=== PATIENT | female | born 1965 | race Caucasian/White ===

== ENCOUNTER → 2017-03-28 | Outpatient (CLI) | payer OTHER ==
[~2017-03-28] MED LIST: ACET-1600 PO; ACET1TAB91 PO; ASPI-496 PO; FAMO-79 PO; OXYC-302 PO; VOLTAREN PO; [UNRECOGNIZED DRUG - CODE] PO
[2017-03-28 14:35] LABS: BASOPHILS # (AUTO) 0.05 x10^3/uL (0-0.1); BASOPHILS % (AUTO) 1 % (0-1); EOSINOPHILS # (AUTO) 0.37 x10^3/uL (0-0.4); EOSINOPHILS % (AUTO) 4 % (1-7); LYMPHOCYTES # (AUTO) 2.22 x10^3/uL (1-3.4); LYMPHOCYTES % (AUTO) 26 % (22-44); MD NO; MEAN CORPUSCULAR HEMOGLOBIN 30.2 pg (27.0-34.8); MEAN CORPUSCULAR HGB CONC 33.8 g/dL (32.4-35.8); MEAN CORPUSCULAR VOLUME 89.3 fL (80-100); MEAN PLATELET VOLUME 8.1 fL (7.4-10.4); MONOCYTES # (AUTO) 0.45 x10^3/uL (0.2-0.8); MONOCYTES % (AUTO) 5 % (2-9); NEUTROPHILS # (AUTO) 5.45 x10^3/uL (1.8-6.8); NEUTROPHILS % (AUTO) 64 % (42-75); PLATELET COUNT 235 x10^3/uL (130-400); RED BLOOD COUNT 4.51 x10^6/uL (3.82-5.3); RED CELL DISTRIBUTION WIDTH 13.3 % (9.6-15.2)
[2017-03-28 14:38] LABS: MICROSCOPIC NOT IND
[2017-03-28 14:45] LABS: CULTURE INDICATED? NO
[2017-03-28 14:47] LABS: ANION GAP 5 mmol/L (5-15); CALCIUM 8.6 mg/dL (8.5-10.1); CHLORIDE 107 mmol/L (98-107); CREATININE 0.59 mg/dL (0.55-1.02)
== END | disposition home or self-care (01) ==
LOC: STAR 13:38
PROVIDERS: ATTEND Orthopaedic Surgery
DX: Z01.818 Encounter for other preprocedural examination (principal); M17.12 Unilateral primary osteoarthritis, left knee
CPT/HCPCS: 36415; 80048; 81003; 85025; 87081

== ENCOUNTER 2017-04-04 09:28 | Inpatient (IN) | payer OTHER ==
[~2017-04-04] VITALS: Ht 182.9 cm; Wt 111.2 kg
[2017-04-04] MEDS ORDERED: LACTATED RINGERS 1,000 ML IV SCH (10:03)
[2017-04-04 10:05] VITALS: BP_SYST 119
[2017-04-04] MEDS ORDERED: ONDANSETRON 2MG/ML, 2ML ONE (10:16)
[2017-04-04] MEDS ORDERED: DEXAMETHASONE 4 MG/ML, 1ML ONE (10:16)
[2017-04-04] MEDS ORDERED: LIDOCAINE-MPF 1%, 2ML ONE (10:16)
[2017-04-04] MEDS ORDERED: CEFAZOLIN 1,000 MG ONE (10:16)
[2017-04-04] MEDS ORDERED: LIDOCAINE 1%, 2ML SQ PRN (10:30)
[2017-04-04] MEDS ORDERED: FAMOTIDINE 20 MG TABLET PO STA (11:04)
[2017-04-04] MEDS ORDERED: ACETAMINOPHEN 500 MG TABLET PO STA (11:04)
[2017-04-04] MEDS ORDERED: SCOPOLAMINE PATCH, 1.5MG PATCH.TD72 TD ONE (11:30)
[2017-04-04] MEDS ORDERED: GABAPENTIN 300 MG CAPSULE PO ONE (11:30)
[2017-04-04] MEDS ORDERED: FENTANYL PF 100 MCG/2ML ONE (12:16)
[2017-04-04] MEDS ORDERED: MIDAZOLAM 1 MG/ML, 5ML ONE (12:16)
[2017-04-04] MEDS ORDERED: ROPIvacaine/PF 0.2%, 20 ML ONE (12:30)
[2017-04-04] MEDS ORDERED: VANCOMYCIN 1,000 MG ONE (12:30)
[2017-04-04] MEDS ORDERED: KETOROLAC 60 MG/2 ML ONE (12:30)
[2017-04-04] MEDS ORDERED: TRANEXAMIC ACID 100 MG/ML, 10ML ONE (12:30)
[2017-04-04] MEDS ORDERED: SODIUM CHLORIDE 0.9% 100 ML ONE (12:31)
[2017-04-04] MEDS ORDERED: EPINEPHRINE 1 MG/ML, 1ML ONE (12:31)
[2017-04-04] MEDS ORDERED: PROPOFOL 50 ML ONE ×2 (13:27→14:02)
[2017-04-04] MEDS ORDERED: ROPIvacaine/PF 0.2%, 100ML 550 ML (check volume) INJ ONE (14:30)
[2017-04-04] MEDS ORDERED: ALBUTEROL SULFATE 2.5 MG/3 ML NPPB PRN (14:30)
[2017-04-04] MEDS ORDERED: PROMETHAZINE 25 MG/ML, 1ML IV PRN (14:30)
[2017-04-04] MEDS ORDERED: OXYcodone 5 MG/5 ML ORAL.SOL UDC PO PRN (14:30)
[2017-04-04] MEDS ORDERED: DIAZEPAM 5 MG/ML, 2ML IVPush PRN (14:30)
[2017-04-04] MEDS ORDERED: FENTANYL PF 100 MCG/2ML IV PRN (14:30)
[2017-04-04] MEDS: D5%-0.45% NACL 1,000 ML IV SCH ×2 (14:59→22:59)
[2017-04-04] MEDS ORDERED: SENNA/DOCUSATE TABLET PO PRN (15:00)
[2017-04-04] MEDS ORDERED: DIAZEPAM 5 MG TABLET PO PRN (15:00)
[2017-04-04] MEDS ORDERED: HYDROcodone/APAP 5/325 TABLET PO PRN (15:00)
[2017-04-04] MEDS ORDERED: DIPHENHYDRAMINE 25 MG CAPSULE PO PRN (15:00)
[2017-04-04] MEDS: KETOROLAC 30 MG/1 ML IV SCH ×2 (15:00→21:28)
[2017-04-04] MEDS: HYDROcodone/APAP 5/325 TABLET PO SCH ×2 (15:00→20:04)
[2017-04-04] MEDS ORDERED: ZOLPIDEM 5MG TABLET PO PRN (15:00)
[2017-04-04] MEDS ORDERED: PROMETHAZINE 12.5 MG SUPP PR PRN (15:00)
[2017-04-04] MEDS ORDERED: BISACODYL 10 MG SUPP PR PRN (15:00)
[2017-04-04] MEDS ORDERED: PROMETHAZINE 25 MG/ML, 1ML IM PRN (15:00)
[2017-04-04] MEDS ORDERED: ONDANSETRON 2MG/ML, 2ML IV PRN (15:00)
[2017-04-04] MEDS ORDERED: MAGNESIUM HYDROXIDE 8%, 30ML UDC PO PRN (15:00)
[2017-04-04] MEDS ORDERED: ONDANSETRON 4 MG TABLET PO PRN (15:00)
[2017-04-04] MEDS ORDERED: ALUMINUM/MAG/SIMETHICONE 30 ML UDC PO PRN (15:00)
[2017-04-04] MEDS: ACETAMINOPHEN 650 MG/20.3 ML UDC PO SCH ×2 (15:00→21:28)
[2017-04-04] MEDS ORDERED: HYDROmorphone 1 MG/ML, 1ML IV PRN (15:00)
[2017-04-04] MEDS ORDERED: TRANEXAMIC ACID 1,000 MG in SODIUM CHLORIDE 0.9% 100 ML IVPB ONE (15:30)
[2017-04-04] MEDS: TAMSULOSIN 0.4 MG CAP.ER.24H PO SCH (15:30)
[2017-04-04] MEDS: CEFAZOLIN PMX 2GM/50ML 50 ML IVPB SCH (21:28)
[2017-04-04] MEDS: DOCUSATE 100 MG CAPSULE PO SCH (21:28)
[2017-04-04 21:49] VITALS: BP 113/71
[2017-04-05] MEDS: HYDROcodone/APAP 5/325 TABLET PO SCH ×2 (00:14→05:58)
[2017-04-05 00:40] VITALS: BP 99/62
[2017-04-05 03:00] VITALS: BP 109/73
[2017-04-05] MEDS: ACETAMINOPHEN 650 MG/20.3 ML UDC PO SCH ×2 (03:00→08:49)
[2017-04-05] MEDS: KETOROLAC 30 MG/1 ML IV SCH ×2 (04:22→08:50)
[2017-04-05] MEDS: CEFAZOLIN PMX 2GM/50ML 50 ML IVPB SCH (05:30)
[2017-04-05] MEDS ORDERED: DEXAMETHASONE 4 MG/ML, 1ML IVPush SCH (06:00)
[2017-04-05] MEDS ORDERED: ENOXAPARIN 40 MG/0.4 ML SQ SCH (06:00)
[2017-04-05 07:32] VITALS: BP 112/78
[2017-04-05] MEDS: TAMSULOSIN 0.4 MG CAP.ER.24H PO SCH (08:49)
[2017-04-05] MEDS: DOCUSATE 100 MG CAPSULE PO SCH (08:49)
[2017-04-05] MEDS ORDERED: MULTIVITAMINS/MINERALS TABLET PO SCH (09:00)
[2017-04-05] MEDS: D5%-0.45% NACL 1,000 ML IV SCH (10:18)
[2017-04-05] MEDS ORDERED: ENOX40SY4 SQ (12:24)
[2017-04-05] MEDS ORDERED: HYDR-3240 PO (13:20)
== END 2017-04-05 13:35 | disposition home or self-care (01) | DRG 470 ==
LOC: ORIP 09:28 → 4NOR 16:07 → DCLOUNGE 04-05 13:27
PROVIDERS: ADMIT Orthopaedic Surgery; ATTEND Orthopaedic Surgery
PROC: 0SRD0J9 Replacement of Left Knee Joint with Synthetic Substitute, Cemented, Open Approach (ICD-10-PCS; principal; 2017-04-04 12:45)
DX: M17.12 Unilateral primary osteoarthritis, left knee (principal); M21.00 Valgus deformity, not elsewhere classified, unspecified site; Z88.5 Allergy status to narcotic agent
CPT/HCPCS: 36415; 85014; 85018; C1713; J0171; J0690; J1100; J1650; J1885; J2250; J2405; J2704; J2795; J3010; J3370; J3490; C1776; J7120

== ENCOUNTER → 2017-12-23 | Outpatient (CLI) | payer BC ==
[~2017-12-23] MED LIST changes: +ENOX40SY4 SQ; +HYDR-3240 PO
== END | disposition home or self-care (01) ==
LOC: PETCFH 13:22
PROVIDERS: ATTEND Specialist
DX: C77.0 Secondary and unspecified malignant neoplasm of lymph nodes of head, face and neck (principal); C50.911 Malignant neoplasm of unspecified site of right female breast; Z90.13 Acquired absence of bilateral breasts and nipples
CPT/HCPCS: 78815; A9552

== ENCOUNTER → 2018-07-20 | Outpatient (CLI) | payer BC | END | disposition home or self-care (01) | LOC: PETCFH 09:11 | PROVIDERS: ATTEND Internal Medicine Hematology & Oncology | DX: C78.1 Secondary malignant neoplasm of mediastinum (principal); C77.0 Secondary and unspecified malignant neoplasm of lymph nodes of head, face and neck; C50.911 Malignant neoplasm of unspecified site of right female breast; E11.9 Type 2 diabetes mellitus without complications; Z91.041 Radiographic dye allergy status | CPT/HCPCS: 78815; A9552 ==

== ENCOUNTER → 2019-01-11 | Outpatient (CLI) | payer BC | END | disposition home or self-care (01) | LOC: PETCFH 09:31 | PROVIDERS: ATTEND Internal Medicine Hematology & Oncology | DX: C79.51 Secondary malignant neoplasm of bone (principal); C50.911 Malignant neoplasm of unspecified site of right female breast | CPT/HCPCS: 78815; A9552 ==

== ENCOUNTER 2019-07-11 09:31 | Outpatient (CLI) | payer BC | END 2019-07-11 23:59 | disposition home or self-care (01) | LOC: PETCFH 09:31 | PROVIDERS: ATTEND Internal Medicine Hematology & Oncology | DX: C50.911 Malignant neoplasm of unspecified site of right female breast (principal); C79.51 Secondary malignant neoplasm of bone | CPT/HCPCS: 78815; A9552 ==

== ENCOUNTER → 2020-01-21 | Outpatient (CLI) | payer BC | END | disposition home or self-care (01) | LOC: PETCFH 13:39 | PROVIDERS: ATTEND Internal Medicine Hematology & Oncology | DX: C79.51 Secondary malignant neoplasm of bone (principal); C50.911 Malignant neoplasm of unspecified site of right female breast | CPT/HCPCS: 78815; A9552 ==

== ENCOUNTER → 2020-07-15 | Outpatient (CLI) | payer BC ==
[~2020-07-15] MED LIST changes: +HYDR-2214 PO; -HYDR-3240 PO; -OXYC-302 PO; +OXYC1TAB14 PO
== END | disposition home or self-care (01) ==
LOC: PETCFH 09:34
PROVIDERS: ATTEND Internal Medicine Hematology & Oncology
DX: C79.51 Secondary malignant neoplasm of bone (principal); C50.911 Malignant neoplasm of unspecified site of right female breast
CPT/HCPCS: 78815; A9552